=== PATIENT | female | born 1965 | race Caucasian/White ===

== ENCOUNTER → 2016-12-09 | Outpatient (CLI) | payer BC ==
[~2016-12-09] MED LIST: IOHEXOL 300 MG/ML 100ml INJECTION ONE; NORMAL SALINE 100 ML ONE; SALINE FLUSH 10ml SYRINGE ONE
[2016-12-09 14:57] LABS: CREATININE 0.6 MG/DL (0.7-1.2)
--- NOTE | 2016-12-09 16:48 | DI ---
Indication: ITS.REASON: R10.9 ABD PAIN PROCEDURE: CT ABD/PELVIS W/CONTRAST ONLY: Encounter: Initial Comparison: None Technique: Axial CT images were performed through the abdomen and pelvis after the administration of intravenous contrast. Coronal and sagittal two-dimensional reformats. Automated Exposure Control and Iterative Reconstruction dose reducing techniques were utilized. Contrast: Omnipaque 300 98 mL Findings: Bilateral breast implants. The lung bases are clear. The liver is normal in appearance. Gallbladder is decompressed. The spleen, pancreas and adrenal glands are within normal limits. Right kidney shows a small 1 cm probable cyst medially but is otherwise normal. The bladder is normal. Tubal ligation clips noted. No free fluid. There is questionable mild inflammation surrounding the mid sigmoid colon with numerous diverticula present. No evidence of a small bowel obstruction. The left kidney has an abnormal appearance with hydronephrosis and a dilated renal pelvis. There is abrupt transition to normal caliber ureter at the ureteropelvic junction. No stone disease identified. Additional tiny low-attenuation foci scattered throughout the left kidney, too small to definitively characterize. Bone windows show degenerative and postoperative changes in the lumbar spine. Impression: 1. Left UPJ obstruction. 2. Questionable mild sigmoid diverticulitis. Recommend clinical and laboratory correlation. .
== END ==
LOC: IMA 14:20
PROVIDERS: ATTEND Nurse Practitioner Acute Care
DX: N13.1 Hydronephrosis with ureteral stricture, not elsewhere classified (principal); K57.30 Diverticulosis of large intestine without perforation or abscess without bleeding
CPT/HCPCS: 36415; 82565; 84520